=== PATIENT | male | born 1965 | race Caucasian/White ===

== ENCOUNTER 2021-09-20 20:45 | Emergency (ER) | payer OTHER ==
[~2021-09-20 20:45] MED LIST: FLEXERIL 10 MG10 MG PO; IBUPROFEN600 MG PO; KEFLEX CAP 500500 MG PO; NORCO 5-325 TA1 EACH PO; NORCO 7.5-3251 EACH PO; NORFLEX 100 MG100 MG PO; PREDNISONE 20 M20 MG PO; Voltaren Gel 1 % TOP
[2021-09-20] MEDS ORDERED: PERCOCET 5/325 T1 EA PO (22:15)
== END 2021-09-20 22:38 | disposition home or self-care (01) ==
LOC: ER1 20:45
DX: M54.2 Cervicalgia (principal); Z88.0 Allergy status to penicillin; F17.210 Nicotine dependence, cigarettes, uncomplicated
CPT/HCPCS: 70450; 70490; 99283

== ENCOUNTER → 2021-11-16 | Outpatient (CLI) | payer OTHER ==
[~2021-11-16] MED LIST changes: +MINOCYCLINE HCL50 M1 PO; +PERCOCET 5/325 T1 EA PO
== END ==
LOC: OPSV2 12:30
DX: Z01.810 Encounter for preprocedural cardiovascular examination (principal)
CPT/HCPCS: 93005

== ENCOUNTER → 2021-11-17 | Outpatient (CLI) | payer OTHER | LOC: CT 14:51 | DX: D37.05 Neoplasm of uncertain behavior of pharynx (principal) | CPT/HCPCS: 70491; Q9967 ==

== ENCOUNTER → 2021-11-23 | Day surgery (SDC) | payer OTHER | END | disposition home or self-care (01) | LOC: OR 06:25 | DX: C10.2 Malignant neoplasm of lateral wall of oropharynx (principal); K21.9 Gastro-esophageal reflux disease without esophagitis; R05.9 Cough, unspecified; H93.13 Tinnitus, bilateral; G89.29 Other chronic pain; I27.20 Pulmonary hypertension, unspecified; F11.90 Opioid use, unspecified, uncomplicated; F17.210 Nicotine dependence, cigarettes, uncomplicated; Z72.89 Other problems related to lifestyle | CPT/HCPCS: J1100; J2001; J2250; J2405; J2704; J3010 ==

== ENCOUNTER 2022-01-04 00:51 | Emergency (ER) | payer OTHER | END 2022-01-04 02:00 | disposition home or self-care (01) | LOC: ER1 00:51 | DX: K04.7 Periapical abscess without sinus (principal); K04.02 Irreversible pulpitis | CPT/HCPCS: 64400; 99282 ==